=== PATIENT | male | born 1975 | race Caucasian/White ===

== ENCOUNTER 2024-06-29 08:18 | Emergency (ER) | payer BC, OTHER ==
[2024-06-29] MEDS ORDERED: KETOROLAC 30 MG/ML INJ ONE (08:28)
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
[2024-06-29 09:35] VITALS: TEMP 97.5
[2024-06-29 09:37] VITALS: BP 157/88; O2SAT 99
== END 2024-06-29 09:30 | disposition home or self-care (01) ==
LOC: ER 08:18
DX: S33.5XXA Sprain of ligaments of lumbar spine, initial encounter (principal); V44.5XXA Car driver injured in collision with heavy transport vehicle or bus in traffic accident, initial encounter
CPT/HCPCS: 72131; 96372; 99284

== ENCOUNTER 2024-08-11 07:52 | Emergency (ER) | payer BC ==
--- NOTE | 2024-08-11 08:45 | RAD REPORT ---
EXAMINATION: US RIGHT UPPER EXTREMITY VENOUS DOPPLER CLINICAL INDICATION: eval for RUE dvt RIGHT TECHNIQUE: Complete bilateral duplex sonography of the RIGHT upper extremity veins was performed. The examination included compression for vein patency, color Doppler imaging and flow augmentation in response to distal compression of the internal jugular, brachiocephalic, subclavian, axillary, brachi al, radial, ulnar, cephalic and basilic veins. COMPARISON: No prior exam. FINDINGS: Duplex sonography testing of the veins of the RIGHT upper extremity was performed. Color flow imaging shows all veins to be compressible with [id number] color filling. Pulsatile and phasic flow is present within all upper extremity deep and superficial veins examined. IMPRESSION: There is no deep vein or superficial vein thrombosis.
--- NOTE | 2024-08-11 08:48 | EDPHYS ---
Physician Documentation [facility] Name: David Haywood Age: 48 yrs Sex: Male : 1975 Arrival Date: 08/11/2024 Time: 07:52 Bed 12 Private MD: ED Physician Roosevelt Bailey HPI: 08/11 08:15 This 48 yrs old Male presents to ER via Ambulatory with complaints of Hand ec2 Pain - Right, Hand Swelling - right. 08:15 Patient arrives today for evaluation of right hand swelling. Reports progressive right ec2 hand swelling over the past several days. Reports no fevers or chills, nausea or vomiting, no systemic symptoms. No history of DVT. Historical: - Allergies: 08:02 No Known Allergies; jl7 - Home Meds: 08:02 lisinopril Oral [Active]; Levemir U-100 Insulin subcutaneous [Active]; Metformin Oral jl7 [Active]; - PMHx: 08:02 diabetes mellitus; High Cholesterol; Hypertensive disorder; jl7 - PSHx: 08:02 L knee repair; jl7 - Immunization history:: Adult Immunizations not up to date. - Infectious Disease History:: Denies. - Social history:: Smoking status: Patient reports use of chewing tobacco. ROS: 08:15 Constitutional: as per hpi ec2 Exam: 08:15 Constitutional: GEN: NAD Head: atraumatic Eyes: EOMI Ears: External ears are ec2 normal. CV: regular rate LUNGS: no respiratory distress ABD: non-distended SKIN: Right hand with significant erythema, trace swelling appreciated MSK: no evidence of trauma Vital Signs: 08:01 BP 156 / 82; Pulse 88; Resp 17; Temp 98.1; Pulse Ox 100% ; Weight 86.18 kg; Height 5 jl7 ft. 10 in. ; Pain 9/10; 08:01 Body Mass Index 27.26 (86.18 kg, 177.8 cm) jl7 08:01 Pain Scale: Adult jl7 MDM: 08:08 Medical Screening Exam initiated ec2 08:16 Data reviewed: vital signs, nurses notes. ED course: Patient arrives today for right ec2 hand complaints as noted above. Examination yields erythema with some swelling, will obtain ultrasound. Differential includes DVT, cellulitis.. 08:47 ED course: Ultrasound is negative for DVT. Will treat the patient for cellulitis and ec2 have the patient follow-up PCP. Return precautions given.. 08/11 08:26 Order name: UPPER EXTREMITY VENOUS UNILATE; Complete Time: 08:47 EDMS Administered Medications: No medications were administered Disposition Summary: 08/11/24 08:48 Discharge Ordered Notes: Location: Home ec2 Condition: Stable ec2 Diagnosis - Cellulitis of right upper limb ec2 Followup: ec2 - With: Private Physician - When: - Reason: Re-evaluation by your physician Discharge Instructions: - Discharge Summary Sheet ec2 - Cellulitis, Adult ec2 Forms: - Medication Reconciliation Form ec2 - Antibiotic Education ec2 - Prescription Opioid Use ec2 - Patient Portal Instructions ec2 - Leadership Thank You Letter ec2 Prescriptions: - Bactrim DS 800-160 mg Oral Tablet - take 1 tablet ORAL route every 12 hours for 7 days; 14 tablet; Refills: 0, ec2 Product Selection Permitted Signatures: Dispatcher [employer] Stone Jacome RN RN jl7 Roosevelt Bailey MD MD ec2 Corrections: (The following items were deleted from the chart) 08:26 08:15 Extremity Venous Uni [id number] ordered. EDMS EDMS
--- NOTE | 2024-08-11 08:48 | ER ---
Nurse's Notes [facility] Name: David Haywood Age: 48 yrs Sex: Male : 1975 Arrival Date: 08/11/2024 Time: 07:52 Bed 12 Private MD: Diagnosis: Cellulitis of right upper limb Presentation: 08/11 08:01 Chief complaint: Patient states: Swelling/pain to right hand x 4 days, denies trauma. jl7 Coronavirus screen: At this time, the client does not indicate any symptoms associated with coronavirus-19. Ebola Screen: No symptoms or risks identified at this time. Initial Sepsis Screen: Does the patient meet any 2 criteria? No. Patient's initial sepsis screen is negative. Does the patient have a suspected source of infection? No. Patient's initial sepsis screen is negative. Risk Assessment: Do you want to hurt yourself or someone else? Patient reports no desire to harm self or others. Onset of symptoms was August 08, 2024. 08:01 Method Of Arrival: Ambulatory jl 08:01 Acuity: ELOISA 3 jl7 Triage Assessment: 08:02 General: Appears in no apparent distress. uncomfortable, Behavior is calm, cooperative, jl7 appropriate for age. Pain: Complains of pain in right hand. Derm: Skin is pink, warm \T\ dry. dry, red, crack skin noted to right hand. Musculoskeletal: Swelling present in right hand. Historical: - Allergies: 08:02 No Known Allergies; jl7 - Home Meds: 08:02 lisinopril Oral [Active]; Levemir U-100 Insulin subcutaneous [Active]; Metformin Oral jl7 [Active]; - PMHx: 08:02 diabetes mellitus; High Cholesterol; Hypertensive disorder; jl7 - PSHx: 08:02 L knee repair; jl7 - Immunization history:: Adult Immunizations not up to date. - Infectious Disease History:: Denies. - Social history:: Smoking status: Patient reports use of chewing tobacco. Screenin:00 [facility] ED Fall Risk Assessment (Adult) History of falling in the last 3 months, jl7 including since admission No falls in past 3 months (0 pts) Confusion or Disorientation No (0 pts) Intoxicated or Sedated No (0 pts) Impaired Gait No (0 pts) Mobility Assist Device Used No (0 pt) Altered Elimination No (0 pt) Score/Fall Risk Level 0 - 2 = Low Risk Oriented to surroundings, Maintained a safe environment. Abuse screen: Denies threats or abuse. Denies injuries from another. Nutritional screening: No deficits noted. Tuberculosis screening: No symptoms or risk factors identified. Assessment: 08:00 General: See triage. jl7 Vital Signs: 08:01 BP 156 / 82; Pulse 88; Resp 17; Temp 98.1; Pulse Ox 100% ; Weight 86.18 kg; Height 5 jl7 ft. 10 in. ; Pain 9/10; 08:01 Body Mass Index 27.26 (86.18 kg, 177.8 cm) jl7 08:01 Pain Scale: Adult jl7 ED Course: 07:55 Patient arrived in ED. im 08:00 Stone Silva RN is Primary Nurse. jl7 08:00 Patient has correct armband on for positive identification. Provided Education on: jl7 discharge. 08:00 No provider procedures requiring assistance completed. Patient did not have IV access jl7 during this emergency room visit. 08:02 Triage completed. jl7 08:02 Arm band placed on right wrist. jl7 08:08 Roosevelt Bailey MD is Attending Physician. ec2 08:41 UPPER EXTREMITY VENOUS UNILATE In Process Unspecified. EDMS Administered Medications: No medications were administered Medication: 08:00 VIS not applicable for this client. jl7 Outcome: 08:48 Discharge ordered by . ec2 09:05 Discharged to home ambulatory, jl7 09:05 Condition: stable 09:05 Discharge instructions given to patient, Instructed on discharge instructions, follow up and referral plans. medication usage, Demonstrated understanding of instructions, follow-up care, medications, Prescriptions given X 1, 09:05 Patient left the ED. jl7 Signatures: Dispatcher [employer] EDStone Dia RN RN jl7 Lyndsey Qureshi Roosevelt Bailey MD MD ec2
[2024-08-11 09:32] VITALS: BP 156/82; TEMP 98.1; O2SAT 100
== END 2024-08-11 09:05 | disposition home or self-care (01) ==
LOC: ER 07:52
DX: L03.113 Cellulitis of right upper limb (principal); E11.9 Type 2 diabetes mellitus without complications; I10 Essential (primary) hypertension; E78.00 Pure hypercholesterolemia, unspecified; F17.220 Nicotine dependence, chewing tobacco, uncomplicated; Z79.4 Long term (current) use of insulin; Z79.84 Long term (current) use of oral hypoglycemic drugs; Z79.899 Other long term (current) drug therapy
CPT/HCPCS: 93971; 99283